=== PATIENT | male | born 1985 | race Two or more races ===

== ENCOUNTER 2017-04-01 09:17 | Emergency (ER) | payer MEDICAID ==
[2017-04-01 09:54] LABS: PLATELET COUNT 207 x10^3mcL (130-400); RED CELL DISTRIBUTION WIDTH 12.7 % (11.5-14.5)
[2017-04-01 10:20] LABS: SODIUM SERUM 139 mmol/L (136-145)
[2017-04-01 10:21] LABS: ALBUMIN 3.9 g/dL (3.4-5.0); ALKALINE PHOSPHATASE 151 U/L (46-116); ALT/SGPT 33 U/L (16-63); AST/SGOT 30 U/L (15-37); BILIRUBIN TOTAL 0.64 mg/dL (0.20-1.00); CALCIUM 8.4 mg/dL (8.5-10.1); CARBON DIOXIDE 22.2 mmol/L (21-32); CHLORIDE SERUM 103 mmol/L (98-107); CREATININE SERUM 1.2 mg/dL (0.7-1.3); GFR1 > 60 mL/min; GLUCOSE SERUM 91 mg/dL (74-106); TOTAL PROTEIN, SERUM 7.1 g/dL (6.4-8.2)
[2017-04-01 10:55] LABS: AMPHETAMINE QUAL UR NONE DETECTED (NEG <=1000)
[2017-04-01 11:37] VITALS: BP 109/49
[2017-04-01 12:17] LABS: ATYPICAL LYMPH 2 %; BAND NEUTROPHIL 1 % (0-10); BASOPHIL 0 % (0-2); MONOCYTE 7 % (0-7); SEGMENTED NEUTROPHILS 40 % (37-75)
[2017-04-01 12:18] LABS: PLATELET MORPHOLOGY PLATELETS NORMAL; rbc morphology (normal/abnorm) ABNORMAL (NORMAL)
== END 2017-04-01 11:37 | disposition home or self-care (01) ==
LOC: ED 09:17
PROVIDERS: Emergency Medicine
DX: G40.909 Epilepsy, unspecified, not intractable, without status epilepticus (principal); S00.212A Abrasion of left eyelid and periocular area, initial encounter; X58.XXXA Exposure to other specified factors, initial encounter; Y93.89 Activity, other specified; Y99.8 Other external cause status; Y92.89 Other specified places as the place of occurrence of the external cause
CPT/HCPCS: G0480; J1165; J1885; J2060; J3490; J7030

== ENCOUNTER 2018-05-22 17:19 | Emergency (ER) | payer SELFPAY ==
[~2018-05-22] VITALS: Ht 177.8 cm; Wt 79.4 kg
[2018-05-22 17:24] VITALS: Ht 177.8 cm; Wt 79.4 kg
[2018-05-22 19:11] VITALS: BP 111/79
== END 2018-05-22 19:11 | disposition home or self-care (01) ==
LOC: ED 17:19
DX: R56.9 Unspecified convulsions (principal); V89.2XXA Person injured in unspecified motor-vehicle accident, traffic, initial encounter; W22.11XA Striking against or struck by driver side automobile airbag, initial encounter; Y93.I9 Activity, other involving external motion; Y92.413 State road as the place of occurrence of the external cause; Y99.8 Other external cause status
CPT/HCPCS: J1165; J3490